=== PATIENT | female | born 1940 | race Caucasian/White ===

== ENCOUNTER 2016-04-09 17:41 | Emergency (ER) | payer MEDICARE, MEDICAID ==
[2016-04-09 17:55] VITALS: TEMP 98.4; BMI 23.8
[2016-04-09 18:08] LABS: AUTOMATED BASOPHIL 1.6 % (0-2); AUTOMATED EOSINOPHIL 2.4 % (0-5); AUTOMATED LYMPH 28.4 % (17-44); AUTOMATED MONOCYTE 7.5 % (3-10); AUTOMATED NEUTROPHIL 60.1 % (45-76); MPV 9.8 fL (7.4-10.4)
[2016-04-09 18:20] LABS: PARTIAL THROMB. TIME 35.3 SEC (22-35); PT-INR 1.5
[2016-04-09 18:26] LABS: BLOOD UREA NITROGEN 11 MG/DL (7-17); CALCIUM 10.5 MG/DL (8.4-10.2); CALCULATED OSMOLALITY 263 MOs/Kg (270-290); CHLORIDE 101 mEq/L (98-107); GLUCOSE 97 MG/DL (70-99); SODIUM LEVEL 137 mEq/L (137-146); TOTAL PROTEIN 7.4 G/DL (6.3-8.2)
[2016-04-09] MEDS ORDERED: hydrALAZINE 20 MG/ML VIAL IV ONE (18:42)
--- NOTE | 2016-04-09 19:05 | DIRPT ---
CLINICAL DATA: Hypertension. Up and down blood pressure for the past several weeks. No chest pain. Nonsmoker. EXAM: PORTABLE CHEST 1 VIEW COMPARISON: 05/23/2014 FINDINGS: Heart is enlarged. There are no focal consolidations or pleural effusions. No pulmonary edema. IMPRESSION: Cardiomegaly. Electronically Signed By: Marie Lopez M.D. On: 04/09/2016 19:02
--- NOTE | 2016-04-09 19:24 | EDPRACDOC ---
- General Information Chief Complaint: Blood Pressure (Problems) Stated Complaint: ELEVATED BP Time Seen by Provider: 04/09/16 18:40 Information Source: Patient Home Medications: Home Medications Anastrozole [Arimidex] 1 mg PO DAILY 03/21/12 Nitroglycerin [Nitrostat] 0.4 mg SL [id number] PRN 03/21/12 Metoprolol Tartrate [Lopressor] 25 mg PO BID 05/21/14 Albuterol Sulfate [Ventolin Hfa] 2 puff INH Q4-6H PRN 05/22/14 Trazodone HCl [Desyrel] 50 mg PO HS PRN 05/22/14 Furosemide [Lasix] 40 mg PO BID #120 tab 05/23/14 Isosorbide Mononitrate [Imdur] 30 mg PO DAILY #90 tab 05/23/14 Aspirin (Enteric Coated) [Ecotrin] 81 mg PO DAILY 06/19/14 Lisinopril [Prinivil] 5 mg PO DAILY 06/19/14 Amiodarone HCl [Pacerone] 200 mg PO DAILY 04/09/16 Hydralazine HCl 10 mg PO TID PRN #30 tab 04/09/16 Omeprazole 40 mg PO DAILY 04/09/16 Rivaroxaban [Xarelto] 15 mg PO DAILY 04/09/16 Allergies/Adverse Reactions: Allergies Allergy/AdvReac Type Severity Reaction Status Date / Time diltiazem Allergy See Verified 04/09/16 17:49 Comments - History of Present Illness Onset: today HPI: PT STATES HER BP HAS BEEN GOING UP AND UP OVER THE LAST SEVERAL DAYS. NO CP SOB MOORE OR N/V AT THIS TIME. PT STATES SHE DID HAVE SLIGHT HEADACHE BEFORE SHE CAME IN. BP ON ARRIVAL WAS 204 SYSTOLIC. 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 (204 SYSTOLIC) Symptoms: Reports: Mild Circumstances: Reports: Spontaneous Onset Relevent History of: Reports: Hypertension Hypertension Treatment: Reports: Taking Medication Recent Use of: Reports: None Associated Signs and Symptoms: Reports: Headache ED Past Medical History - History Reviewed Yes Nurses notes reviewed and agree except as marked Travel Outside of [place] in the Last 3 Months?: No - Patient Medical History Neurological History: Reports: Cerebrovascular Accident (TIA in 02/2013) Cardiac History: Reports: Atrial Fibrillation, Hypertension, Congestive Heart Failure, Hypercholesterolemia. 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 Tubal ligation. Cardioversion 07/10.) - Family Medical History Reports: Hypertension (mother), Stroke (mother), Cardiac Disorders (father; brother) - Social Medical History Smoking Status: Former smoker Social History: Denies: Substance Use Disorder ETOH: None Substance Abuse: None Lives With: Other Lives In: Home EDM Review of Systems - Review of Systems ROS Negative Except as Marked: Yes All systems reviewed and were negative except as marked Constitutional: No Symptoms Reported. negative: Fever, Chills, Weakness, Fatigue, Loss of Appetite Eyes: No Symptoms Reported. negative: Redness, Blurred Vision, Double Vision, Discharge, Pain, Light Sensitive, Photophobia Ears: No Symptoms Reported. negative: Pain, Hearing Loss, Drainage, Ear Pulling Throat: No Symptoms Reported. negative: Pain, Swelling Nose: No Symptoms Reported. negative: Congestion, Bleeding, Discharge, Injection, Swelling, Deformity, Ecchymosis, Tender, Abrasion, Laceration Mouth: No Symptoms Reported. negative: Pain, Drooling Respiratory: No Symptoms Reported. negative: Cough, Brassy Cough, Barky Cough, Shortness of Breath, Wheezing, Hemoptysis Cardiovascular: No Symptoms Reported. negative: Chest Pain, Palpitations, Syncope, Edema, Orthopnea, PND, Skin Mottling, Cyanosis Gastrointestinal: No Symptoms Reported. negative: Pain, Constipation, Nausea, Vomiting, Diarrhea, Melena, Formula Intolerance Genitourinary: No Symptoms Reported. negative: Dysuria, Hematuria, Frequency, Discharge, Bleeding, Testicular Pain, Neurological: Headache. negative: Dizziness, Gait Difficulty, Numbness, Seizure , Speech Difficulty, Weakness Musculoskeletal: No Symptoms Reported. negative: Neck, Chestwall, Ribs, Back, Shoulder, Arm, Elbow, Forearm, Wrist, Hand, Pelvis, Hip, Femur, Knee, Leg, Ankle , Foot Integumentary: No Symptoms Reported. negative: Itching, Rash, Bruising, Wound Allergic/Immunologic: No Symptoms Reported. negative: Hives, Itching Hematologic: No Symptoms Reported. negative: Lymphadenopathy, Easy Bruising, Easy Bleeding Endocrine: No Symptoms Reported. negative: Weight Gain, Weight Loss Psychiatric: No Symptoms Reported. negative: Anxiety, Depression, Hallucinations, Insomnia, Suicidal - Physical Exam Constitutional: Alert (Awake), No apparent distress Oriented to: Time, Person, Place Last recorded Vital Signs: Last Vital Signs Temp 98.4 F 04/09/16 17:50 Pulse 54 L 04/09/16 18:59 Resp 18 04/09/16 18:50 BP 218/89 H 04/09/16 18:59 Pulse Ox 94 04/09/16 18:50 Oxygen Pulse Oxygen Saturation 94 O2 Device Room Air Oxygen Flow Rate Fraction of Inspired Oxygen ( FIO2) - HEENT Head: Normal ( normocephalic) Eye Exam: Normal (PERRL, EOMI, Sclera white) Oropharynx: Normal (Pharynx:Moist without exudate,Gums-no swelling) Tympanic Membrane: Normal ENT EAC: Normal TMJ: Normal Nose: No Symptoms Reported (septum midline) Neck: Normal (FROM, trachea at midline) - Respiratory/Cardiovascular Respiratory: Normal - CTA (BBS clear to auscultation without adventitious sounds ) Cardiovascular: Normal (RRR without murmur, gallop or rub) - GI Auscultation: Normal (NABS) Palpation: Normal (Soft,No rebound or guarding, non distended) Tenderness: Non tender Mayfield's Sign: Negative - Bladder: Normal - Musculoskeletal Back: Normal (Non-Tender) Extremities: Normal (Normal tone, Pulses 2+ No cyanosis or edema, FROM) - Integumentary Skin: Normal, Warm, Dry Lymphatics: Normal (no adenopathy) - Neurologic Memory Impaired: Normal Motor Function: Normal (Normal tone, Pulses 2+ No cyanosis or edema, FROM) Cranial Nerve: Normal (CN II-X11 intact sensation, strength 5/5) Cerebellar: Normal Mood Description: Normal Perception: Normal - Differential Diagnosis Hypertension, Essential, Hypertensive Emergency, Hypertensive Encephalop, Hypertensive Urgency - Results 04/09/16 17:55 04/09/16 17:55 WBC 8.7 xk/uL (3.8-10.8) 04/09/16 17:55 RBC 4.54 xM/uL (4.20-5.40) 04/09/16 17:55 Hgb 11.4 g/dL (12.0-16.0) L 04/09/16 17:55 Hct 34.9 % (36-47) L 04/09/16 17:55 MCV 77 fL (81-99) L 04/09/16 17:55 MCH 25.1 pg (27-32) L 04/09/16 17:55 MCHC 32.6 g/dl (33-36) L 04/09/16 17:55 RDW 15.8 % (11.5-14.5) H 04/09/16 17:55 Plt Count 279 xk/uL (130-400) 04/09/16 17:55 MPV 9.8 fL (7.4-10.4) 04/09/16 17:55 Neut % (Auto) 60.1 % (45-76) 04/09/16 17:55 Lymph % (Auto) 28.4 % (17-44) 04/09/16 17:55 [place] % (Auto) 7.5 % (3-10) 04/09/16 17:55 Eos % (Auto) 2.4 % (0-5) 04/09/16 17:55 Baso % (Auto) 1.6 % (0-2) 04/09/16 17:55 Absolute Neuts (auto) 5.22 xk/uL (1.7-8.2) 04/09/16 17:55 Absolute Lymphs (auto) 2.44 xk/uL (0.65-4.75) 04/09/16 17:55 PT 15.7 SEC (9.2-11.2) H 04/09/16 17:55 INR 1.5 04/09/16 17:55 APTT 35.3 SEC (22-35) H 04/09/16 17:55 Sodium 137 mEq/L (137-146) 04/09/16 17:55 Potassium 4.5 mEq/L (3.5-5.1) 04/09/16 17:55 Chloride 101 mEq/L (98-107) 04/09/16 17:55 Carbon Dioxide 25 mMOL/L (22-33) 04/09/16 17:55 Anion Gap 16 mEq/L (8-16) 04/09/16 17:55 BUN 11 MG/DL (7-17) 04/09/16 17:55 Creatinine 1.30 MG/DL (0.52-1.04) H 04/09/16 17:55 Estimated GFR (MDRD) 40 mL/min (>=60) L 04/09/16 17:55 Glucose 97 MG/DL (70-99) 04/09/16 17:55 Calculated Osmolality 263 MOs/Kg (270-290) L 04/09/16 17:55 Calcium 10.5 MG/DL (8.4-10.2) H 04/09/16 17:55 Total Bilirubin 0.6 MG/DL (0.2-1.3) 04/09/16 17:55 AST 25 IU/L (14-36) 04/09/16 17:55 ALT 21 IU/L (9-52) 04/09/16 17:55 Alkaline Phosphatase 97 IU/L (55-165) 04/09/16 17:55 Troponin I 0.02 ng/mL (<.04) 04/09/16 17:55 Elb-P-Ggvojsemxkn Pept 1170 pg/mL (0-1800) 04/09/16 17:55 Total Protein 7.4 G/DL (6.3-8.2) 04/09/16 17:55 Albumin 4.3 G/DL (3.5-5.0) 04/09/16 17:55 Lab Results 04/09/16 04/09/16 04/09/16 17:55 17:55 17:55 WBC 8.7 RBC 4.54 Hgb 11.4 L Hct 34.9 L MCV 77 L MCH 25.1 L MCHC 32.6 L RDW 15.8 H Plt Count 279 MPV 9.8 Neut % (Auto) 60.1 Lymph % (Auto) 28.4 [place] % (Auto) 7.5 Eos % (Auto) 2.4 Baso % (Auto) 1.6 Absolute Neuts (auto) 5.22 Absolute Lymphs (auto) 2.44 PT 15.7 H INR 1.5 APTT 35.3 H Sodium 137 Potassium 4.5 Chloride 101 Carbon Dioxide 25 Anion Gap 16 BUN 11 Creatinine 1.30 H Estimated GFR (MDRD) 40 L Glucose 97 Calculated Osmolality 263 L Calcium 10.5 H Total Bilirubin 0.6 AST 25 ALT 21 Alkaline Phosphatase 97 Troponin I 0.02 Rqi-[id number]-Doxurbueskg Pept 1170 Total Protein 7.4 Albumin 4.3 - EKG EKG #1 EKG Time: 18:01 -: Yes EKG interpreted by me Rate: bpm: 52 [place]: Normal Rhythm: SB Block: None Hypertrophy: None ST: Normal - Diagnostic Imaging CXR Image interpreted by: Radiologist IMPRESSION: Cardiomegaly. Decision Time to Discharge: 20:40 - Departure Disposition: Home Condition: Stable Final Diagnosis: Hypertension Qualifiers: Hypertension type: essential hypertension Qualified Code(s): I10 - Essential ( primary) hypertension Instructions: Chronic Hypertension (ED) Education/Counseling Given To: Patient Education/Counseling Given Regarding: Diagnosis, Treatment, Prognosis, Follow Up Referrals: Iam Cole MD [Primary Care Provider] - One Week Prescriptions: Hydralazine HCl 10 mg PO TID PRN #30 tab PRN Reason: Sbp Above 160 Additional Instructions: RETURN FOR WORSE OR DIFFERENT SYMPTOMS.
[2016-04-09 23:00] VITALS: BP 112/60; PULSE 60
== END 2016-04-09 21:18 | disposition home or self-care (01) ==
LOC: ED 17:41
DX: I10 Essential (primary) hypertension (principal)
CPT/HCPCS: 36415; 71010; 80053; 83880; 84484; 85025; 85610; 85730; 93005; 96374; 99284; J0360